=== PATIENT | female | born 1950 | race Caucasian/White ===

== ENCOUNTER 2017-11-15 13:08 | Outpatient (RCR) | payer BC ==
[~2017-11-15] VITALS: Ht 170.2 cm; Wt 74.0 kg
[~2017-11-15 13:08] MED LIST: SYNTHROID0.112 MG/T PO
[2017-11-15 13:50] VITALS: BP 105/64; PULSE 74; TEMP 98.7
== END 2017-11-15 14:55 | disposition home or self-care (01) ==
LOC: MEDICAL 13:08 → EUO 13:08 → MEDICAL 13:11 → EUO 13:11 → EDSTATUS 13:21 → MEDICAL 14:55
DX: C94.6 Myelodysplastic disease, not elsewhere classified (principal)
CPT/HCPCS: OP

== ENCOUNTER 2017-11-16 13:33 | Outpatient (RCR) | payer BC ==
[~2017-11-16] VITALS: Ht 170.2 cm; Wt 74.0 kg
[2017-11-16 14:03] VITALS: BP 108/58; PULSE 86; TEMP 98.1
== END 2017-11-16 15:41 | disposition home or self-care (01) ==
LOC: MEDICAL 13:33
DX: D46.9 Myelodysplastic syndrome, unspecified (principal); E03.9 Hypothyroidism, unspecified; Z88.1 Allergy status to other antibiotic agents; Z88.8 Allergy status to other drugs, medicaments and biological substances
CPT/HCPCS: OP; J2469; J9025

== ENCOUNTER 2017-12-13 13:32 | Outpatient (RCR) | payer BC ==
[~2017-12-13] VITALS: Ht 170.2 cm; Wt 71.0 kg
[2017-12-13 14:20] VITALS: BP 124/70; PULSE 72; TEMP 98.5
[2017-12-13 15:15] VITALS: PULSE 68; TEMP 98.1
[2017-12-14 13:49] VITALS: BP 114/49; PULSE 72; TEMP 98.1
[2017-12-14] MEDS ORDERED: SYNTHROID0.125 MG/T PO (13:51)
[2017-12-14] MEDS ORDERED: CIPRO 500MG TA500 MG PO (13:52)
[2017-12-14] MEDS ORDERED: DIFLUCAN200 MG PO (13:53)
[2017-12-14] MEDS ORDERED: ZOVIRAX400 MG PO (13:54)
[2017-12-14] MEDS ORDERED: ZOFRAN8 MG PO (13:55)
[2017-12-14] MEDS ORDERED: SMZ/TMP DS TAB 800 (13:55)
[2017-12-14] MEDS ORDERED: SYNTHROID 0.10.15 MG PO (13:56)
[2017-12-14 15:25] VITALS: BP 104/56; PULSE 72; TEMP 98.2
== END 2017-12-14 15:25 | disposition home or self-care (01) ==
LOC: EUO 13:32 → MEDICAL 13:33 → EUO 12-14 15:25
DX: Z51.11 Encounter for antineoplastic chemotherapy (principal); D46.9 Myelodysplastic syndrome, unspecified
CPT/HCPCS: OP; J2405; J9025

== ENCOUNTER → 2019-04-19 | Outpatient (CLI) | payer MEDICARE, OTHER ==
[~2019-04-19] MED LIST changes: +CIPRO 500MG TA500 MG PO; +DIFLUCAN200 MG PO; +SMZ/TMP DS TAB 800; +SYNTHROID 0.10.15 MG PO; +SYNTHROID0.125 MG/T PO; +ZOFRAN8 MG PO; +ZOVIRAX400 MG PO
== END ==
LOC: COL.VAS 13:46
DX: D72.819 Decreased white blood cell count, unspecified (principal)

== ENCOUNTER → 2019-04-20 | Outpatient (CLI) | payer MEDICARE, OTHER | LOC: COL.RAD 12:02 | DX: D46.21 Refractory anemia with excess of blasts 1 (principal); D72.819 Decreased white blood cell count, unspecified; M50.33 Other cervical disc degeneration, cervicothoracic region | CPT/HCPCS: A9585 ==

== ENCOUNTER 2020-06-05 14:38 | Emergency (ER) | payer MEDICARE, OTHER ==
[~2020-06-05] VITALS: Ht 170.2 cm; Wt 70.0 kg
[2020-06-05 14:41] VITALS: TEMP 96
[2020-06-05] MEDS ORDERED: SYNTHROID0.1 MG/TAB PO (14:52)
[2020-06-05 14:59] LABS: BASO % 0.4 % (0.0-2.0); EOS # 0.4 (0.0-0.7); EOS % 4.7 % (0-4.0); GRAN # 4.7 (1.4-6.5); HEMATOCRIT 39.6 % (37.0-47.0); HEMOGLOBIN 13.7 g/dl (12.5-16.0); LYMPH # 2.6 (1.2-3.4); LYMPH % 30.8 % (20.0-51.0); MEAN CELL VOLUME 89 fl (80.0-100.0); MEAN CORPUSCULAR HEMOGLOBIN 31 pg (27.0-31.0); MEAN CORPUSCULAR HGB CONC 35 g/dl (33.0-37.0); MEAN PLATELET VOLUME 9.5 fl (7.4-10.4); MONO # 0.7 (0.1-0.6); PLATELET COUNT 182 K/mm3 (130-400); RED BLOOD COUNT 4.46 M/mm3 (4.10-5.30); REDCELL DISTRIBUTION WIDTH-CV 13.2 % (11.5-14.5)
[2020-06-05 15:04] LABS: PROTHROMBIN TIME 11.4 SECONDS (9.7-12.8)
[2020-06-05 15:07] LABS: ALANINE AMINOTRANSFERASE 16 U/L (4-34); ALBUMIN 4.6 gm/dL (3.5-5.0); ALKALINE PHOSPHATASE 66 U/L (50-136); ANION GAP 9 mmol/L (7-16); AST,SGOT 24 U/L (15-37); BILIRUBIN,TOTAL 0.7 mg/dL (0.0-1.0); BLOOD UREA NITROGEN 21 mg/dL (7-17); CALCIUM 9.8 mg/dL (8.4-10.2); CARBON DIOXIDE 25 mmol/L (22-30); CHLORIDE 104 mmol/L (98-107); CREATININE, serum 0.79 (0.52-1.25); GLUCOSE 152 mg/dL (74-106); LIPASE 169 U/L (23-300); PARTIAL THROMBOPLASTIN TIME 28.7 SECONDS (26.0-37.0); POTASSIUM 3.6 mmol/L (3.4-5.0); SODIUM 139 mmol/L (137-145); TOTAL PROTEIN 7.6 gm/dL (6.4-8.2)
[2020-06-05 15:19] LABS: TROPONIN-I < 0.012 ng/mL (0.000-0.035)
[2020-06-05 18:10] LABS: COLLECTION METHOD CLEAN CATCH
[2020-06-05 18:15] LABS: MUCOUS Present /lpf; PH 6 (5-8); SQUAMOUS EPITHELIAL None Seen /hpf; URINE APPEARANCE Clear; URINE BACTERIA None Seen /hpf; URINE BILIRUBIN Negative (NEGATIVE); URINE BLOOD 1+ (NEGATIVE); URINE COLOR Straw; URINE GLUCOSE Negative (NEGATIVE); URINE KETONE Negative (NEGATIVE); URINE LEUKOCYTE ESTERASE Negative (NEGATIVE); URINE NITRATE Negative (NEGATIVE); URINE PROTEIN(semi-quant) Negative (NEGATIVE); URINE RBC 0-2 /hpf; URINE UROBILINOGEN Negative (NEGATIVE)
[2020-06-05 18:31] VITALS: BP 111/65; PULSE 60
== END 2020-06-05 18:33 | disposition home or self-care (01) ==
LOC: COL.ER 14:38
PROVIDERS: Emergency Medicine
DX: R10.11 Right upper quadrant pain (principal); K80.20 Calculus of gallbladder without cholecystitis without obstruction; Z94.81 Bone marrow transplant status; Z88.1 Allergy status to other antibiotic agents
CPT/HCPCS: J7030

== ENCOUNTER 2024-03-17 12:53 | Emergency (ER) | payer MEDICARE, OTHER ==
[~2024-03-17] VITALS: Ht 167.6 cm; Wt 71.8 kg
[~2024-03-17 12:53] MED LIST changes: +SYNTHROID0.1 MG/TAB PO
[2024-03-17 13:01] VITALS: TEMP 97.4
[2024-03-17 13:18] LABS: BASO % 0.5 % (0.0-2.0); EOS # 0.2 K/mm3 (0.0-0.7); EOS % 2.5 % (0.0-4.0); GRAN # 3.4 K/mm3 (1.4-6.5); GRAN % 55.3 % (42.2-75.2); HEMATOCRIT 40.4 % (37.0-47.0); LYMPH % 32.5 % (20.0-51.0); MEAN CELL VOLUME 91 fl (80.0-100.0); MEAN CORPUSCULAR HEMOGLOBIN 32 pg (27-31); MEAN CORPUSCULAR HGB CONC 35 g/dl (33.0-37.0); MEAN PLATELET VOLUME 9.5 fl (7.4-10.4); MONO # 0.5 K/mm3 (0.1-0.6); MONO % 8.9 % (1.7-9.3); PLATELET COUNT 186 K/mm3 (130-400); RED BLOOD COUNT 4.45 M/mm3 (4.10-5.30); REDCELL DISTRIBUTION WIDTH-CV 13.4 % (11.5-14.5)
[2024-03-17 13:55] LABS: ALANINE AMINOTRANSFERASE 23 U/L (0-55); ALBUMIN 3.9 g/dL (3.4-4.8); ALKALINE PHOSPHATASE 66 U/L (40-150); ANION GAP 12 mmol/L (7-16); AST,SGOT 29 U/L (5-34); BILIRUBIN,TOTAL 0.7 mg/dL (0.2-1.2); BLOOD UREA NITROGEN 24 mg/dL (10-20); CALCIUM 9.8 mg/dL (8.4-10.2); CHLORIDE 108 mEq/L (98-107); CREATININE, serum 0.84 mg/dL (0.57-1.11); GLUCOSE 128 mg/dL (70-99); POTASSIUM 4.3 mEq/L (3.5-4.5); SODIUM 141 mEq/L (136-145); TOTAL PROTEIN 7.1 g/dl (6.2-8.1)
[2024-03-17] MEDS ORDERED: Morphine 4 MG/ML VIAL IV ONE (14:00)
[2024-03-17] MEDS ORDERED: Ondansetron 4 MG/2 ML VIAL IV ONE (14:00)
[2024-03-17 14:05] LABS: TROPONIN-I < 0.010 ng/mL (0.00-0.033)
[2024-03-17] MEDS ORDERED: LR 1,000 ML IV ONE (14:45)
[2024-03-17 15:11] VITALS: BP 158/99; PULSE 73
[2024-03-17] MEDS ORDERED: Iohexol 300 - 100 ML VIAL IV ONE (15:16)
[2024-03-17] MEDS ORDERED: NS 100 ML IV SCH (15:17)
[2024-03-17] MEDS ORDERED: AMOXICILLIN 8751 TAB PO (16:43)
== END 2024-03-17 16:55 | disposition left against medical advice (07) ==
LOC: COL.ER 12:53
PROVIDERS: Family Medicine
DX: K80.40 Calculus of bile duct with cholecystitis, unspecified, without obstruction (principal)
CPT/HCPCS: J2270; J2405; J7120; Q9967

== ENCOUNTER 2024-04-07 10:29 | Day surgery (SDC) | payer MEDICARE ==
[~2024-04-07] VITALS: Ht 167.6 cm; Wt 71.2 kg
[~2024-04-07 10:29] MED LIST changes: +AMOXICILLIN 8751 TAB PO; +LR 1,000 ML IV SCH
[2024-04-07] MEDS ORDERED: Indocyanine Green 12.5 MG in Water For Injection,Sterile 2.5 ML IV ONE (11:30)
[2024-04-07 11:43] LABS: HEMATOCRIT 41.8 % (37.0-47.0); HEMOGLOBIN 14.2 g/dl (12.5-16.0); MEAN CELL VOLUME 93 fl (80.0-100.0); MEAN CORPUSCULAR HEMOGLOBIN 32 pg (27-31); MEAN CORPUSCULAR HGB CONC 34 g/dl (33.0-37.0); MEAN PLATELET VOLUME 10.1 fl (7.4-10.4); PLATELET COUNT 171 K/mm3 (130-400); RED BLOOD COUNT 4.49 M/mm3 (4.10-5.30); REDCELL DISTRIBUTION WIDTH-CV 13.6 % (11.5-14.5)
[2024-04-07] MEDS ORDERED: Ondansetron 4 MG/2 ML VIAL IV PRN (12:00)
[2024-04-07] MEDS ORDERED: fentaNYL 50 MCG/ML 1 ML SYRINGE/VIAL [PACU/SDC ONLY] IV PRN (12:00)
[2024-04-07] MEDS ORDERED: Meperidine 50 MG/ML 1 ML VIAL IV PRN (12:00)
[2024-04-07] MEDS ORDERED: hydrALAZINE 20 MG/ML 1 ML VIAL IV PRN (12:00)
[2024-04-07] MEDS ORDERED: HYDROmorphone 1 MG/1 ML SYRINGE [PACU/SDC ONLY] IV PRN (12:00)
[2024-04-07 12:11] LABS: ALBUMIN 3.8 g/dL (3.4-4.8); BILIRUBIN,TOTAL 0.7 mg/dL (0.2-1.2); CALCIUM 9.5 mg/dL (8.4-10.2); CREATININE, serum 1.01 mg/dL (0.57-1.11); POTASSIUM 3.9 mEq/L (3.5-4.5); TOTAL PROTEIN 7.4 g/dl (6.2-8.1)
[2024-04-07] MEDS ORDERED: ZOVIRAX800 MG PO (12:12)
[2024-04-07] MEDS ORDERED: OSCAL 500 TAB500 MG PO (12:14)
[2024-04-07] MEDS ORDERED: VITAMIN D362.5 MC1 PO (12:15)
[2024-04-07] MEDS ORDERED: SYNTHROID0.088 MG/T PO (12:16)
[2024-04-07] MEDS ORDERED: OMEGA-3 1000 MG1 CAP PO (12:16)
[2024-04-07 12:17] VITALS: BP 132/66; PULSE 82; TEMP 97.8
[2024-04-07] MEDS ORDERED: VITAMINC1000TA PO (12:17)
[2024-04-07] MEDS ORDERED: Lidocaine PF 2% (20 MG/ML) 5 ML VIAL ONE (12:21)
[2024-04-07] MEDS ORDERED: fentaNYL 50 MCG/ML 5 ML VIAL ONE (12:21)
[2024-04-07] MEDS ORDERED: diphenhydrAMINE 50 MG/ML 1 ML VIAL ONE (12:22)
[2024-04-07] MEDS ORDERED: Ondansetron 4 MG/2 ML VIAL ONE (12:22)
[2024-04-07] MEDS ORDERED: Ketorolac 30 MG/ML VIAL ONE (12:22)
[2024-04-07] MEDS ORDERED: Atracurium 50 MG/5 ML VIAL IV ONE (12:23)
[2024-04-07] MEDS ORDERED: Glycopyrrolate 0.2 MG/ML 1 ML VIAL ONE (13:00)
[2024-04-07] MEDS ORDERED: NORCO 325 MG-51 TAB PO (13:36)
[2024-04-07] MEDS ORDERED: Naloxone 0.4 MG/ML VIAL ONE (13:39)
[2024-04-07 14:23] VITALS: BP 120/70; PULSE 65; TEMP 96.9
--- NOTE | 2024-04-07 14:23 | NUR ---
PATIENT RETURNS TO ROOM 7 PER CART FROM PACU ACCOMPAINED BY TEOFILO BURLESON AND PATIENT IS AWAKE AND ALERT. BANDAIDS X4 ON ABDOMEN CLEAN AND DRY. IVF INFUSING. SPOUSE IN ROOM. CALL LIGHT IN REACH. TAKING ICE CHIPS WITHOUT NAUSEA OR VOMITING.
[2024-04-07 14:38] VITALS: BP 114/57; PULSE 61
--- NOTE | 2024-04-07 14:38 | NUR ---
TALKING WITH SPOUSE. OFFERS NO COMPLAINTS. F/U APPOINTMENT SCHEDULED IN [place] ORDERED.
[2024-04-07 14:50] VITALS: BP 125/60; PULSE 63
[2024-04-07 14:53] VITALS: BP 125/61; PULSE 61
--- NOTE | 2024-04-07 14:53 | NUR ---
EATING MUFFIN AND SIPPING ON WATER. CONTINUES TO DENY PAIN OR NAUSEA.
--- NOTE | 2024-04-07 14:53 | NUR ---
IV DISCONTINUED AND SITE IS FREE OF REDNESS. PATIENT DRESSES SELF.
--- NOTE | 2024-04-07 15:11 | NUR ---
DISCHARGE INSTRUCTIONS GIVEN AND PATIENT VOICES UNDERSTANDING OF THESE. GIVEN F/U APPOINTMENT DATE AND TIME. PROVIDED OFFICE NUMBER FOR ANY QUESTIONS OR CONCERNS. BANDAIDS X4 ON ABDOMEN REMAIN CLEAN AND DRY.
--- NOTE | 2024-04-07 15:14 | NUR ---
PATIENT DISCHARGED TO HOME DRIVEN BY SPOUSE AND TAKEN TO PRIVATE VEHICLE PER W/C BY KAYLIE AND ASSISTED INTO CAR WITH DISMISSAL INSTRUCTIONS IN HAND.
== END 2024-04-07 15:14 | disposition home or self-care (01) ==
LOC: SDCO 10:29
PROVIDERS: Surgery
DX: K80.10 Calculus of gallbladder with chronic cholecystitis without obstruction (principal); Z87.891 Personal history of nicotine dependence; Z86.2 Personal history of diseases of the blood and blood-forming organs and certain disorders involving the immune mechanism; Z94.84 Stem cells transplant status
CPT/HCPCS: J0690; J1200; J1885; J2310; J2405; J2704; J3010; J7120